=== PATIENT | female | born 1985 ===

== ENCOUNTER 2020-09-24 08:08 | Outpatient (CLI) | payer BC ==
[2020-09-24 17:55] LABS: SARS-CoV-2 MS2 Positive; SARS-CoV-2 N Gene Negative; SARS-CoV-2 S Gene Negative; SARS-CoV-2 by NAA Not Detected (NotDetected); SARS-CoV-2 orf1ab Negative
== END 2020-09-24 08:09 | disposition home or self-care (01) ==
LOC: LABBT 08:08
PROVIDERS: ATTEND Obstetrics & Gynecology
DX: Z01.812 Encounter for preprocedural laboratory examination (principal); Z20.828 Contact with and (suspected) exposure to other viral communicable diseases
CPT/HCPCS: 87635; U0003

== ENCOUNTER 2020-09-27 19:45 | Inpatient (IN) | payer BC ==
[2020-09-28] MEDS ORDERED: Promethazine HCl 25 MG/ML VIAL IM PRN ×4 (01:18→21:48)
[2020-09-28] MEDS ORDERED: Butorphanol Tartrate 1 MG/ML VIAL SLOW IVP PRN (01:18)
[2020-09-28] MEDS ORDERED: HYDROcodone/Acetaminophen 5/325 mg Tablet PO PRN ×2 (01:18)
[2020-09-28] MEDS ORDERED: NS w/ Oxytocin 10 units 500 ML IV SCH (01:18)
[2020-09-28] MEDS ORDERED: NS / Oxytocin 40 units/1000ml 1,000 ML IV PRN (01:18)
[2020-09-28] MEDS ORDERED: Ondansetron PF 4 MG/2 ML Vial IVP PRN ×4 (01:18→21:48)
[2020-09-28] MEDS ORDERED: Lidocaine 1% (PF) 30 ML VIAL SC PRN (01:18)
[2020-09-28] MEDS ORDERED: Ibuprofen 800 MG TAB PO PRN (01:18)
[2020-09-28] MEDS ORDERED: hydrALAZINE 20 MG/ML VIAL SLOW IVP PRN (01:18)
[2020-09-28 01:56] VITALS: BMI 29.5
[2020-09-28 02:00] LABS: Hemoglobin 14.3 g/dL (12.0-16.0); Mean Corpuscular HGB CONC 34.3 g/dL (32.0-36.0); Mean Corpuscular Hemoglobin 32.9 pg (27.0-31.0); Mean Platelet Volume 8.3 fL (7.4-10.4); Platelet Count 175 thou/uL (130-400); RBC Distribution Width 11.7 % (11.5-14.5); Red Blood Cell (RBC) Count 4.34 mill/uL (4.20-5.40); White Blood Cell (WBC) Count 12.8 thou/uL (4.8-10.8)
[2020-09-28] MEDS ORDERED: Misoprostol 100 MCG TAB VAG SCH ×2 (02:00→05:00)
[2020-09-28 02:41] LABS: HBSAg Index 0.18 S/CO (0-0.99); Hep B Surf Ag Non-Reactive S/CO (NonReactive)
[2020-09-28 05:00] LABS: Syphilis Antibody Nonreactive (Nonreactive); Syphilis Antibody Index 0.02 S/CO (<1.00 Non-Reactive)
--- NOTE | 2020-09-28 08:14 | PDOC.LDHP ---
Labor and Delivery H&P Chief complaint: scheduled induction HPI: G1 @ 41+ here for IOL for prolonged . Due date: 09/21/20 Dating criteria: last menstrual period, first trimester ultrasound Grav: 1 Para: 0 Current complications: none Abnormal US findings: No Current medications: pre- vitamins Previous surgical history: other (dental) Allergies/Adverse Reactions: Allergies Allergy/AdvReac Type Severity Reaction Status Date / Time No Known Allergies Allergy Unverified 09/28/20 01:48 Social history: none - Physical Exam Vital signs reviewed and normal: yes General: breathing through contractions Heart: RRR Lungs: CTAB Abdomen: gravid Extremeties: no edema FHT: category 1 - Vaginal Exam cm dilated: 3 (arom with no fluid noted immediately) Effacement: 75% Station: -1 - OB Labs Blood type: A RH: positive Antibody Screen: negative HIV: negative RPR: negative HEPSAg: negative 1 hour GCT: negative GBS: negative Urine drug screen: negative Rubella: immune - Assessment L&D Assessment: medically indicated induction (41 weeks) - Plan Plan: admit to L&D, cervical ripening -: A/P: IOL @ 41 weeks, sp cervical ripening overnight, AROM w no fluid noted immediately. Will start pitocin if indicated.
[2020-09-28] MEDS ORDERED: Fentanyl 4 mcg/Bup 0.1% Cadd 100 ML in Premix Bag 1 BAG EPIDURAL SCH (12:00)
[2020-09-28] MEDS ORDERED: Lactated Ringer's 500 ML IV PRN ×2 (12:00→13:41)
[2020-09-28] MEDS ORDERED: diphenhydrAMINE 50 MG/ML VIAL IVP PRN ×3 (12:00→21:48)
[2020-09-28] MEDS ORDERED: Acetaminophen 325 MG TAB PO PRN ×2 (12:00→13:41)
[2020-09-28] MEDS ORDERED: ePHEDrine/0.9% NaCl/PF SYRINGE 50 mg/10 ml IV PRN (12:00)
[2020-09-28] MEDS ORDERED: Naloxone HCl 0.4 mg/ml Vial IV PRN ×3 (12:00→21:48)
[2020-09-28] MEDS ORDERED: Fentanyl 100 MCG/2 ML VIAL SLOW IVP PRN (12:00)
[2020-09-28] MEDS ORDERED: Hydrocerin (Eucerin) Cream 120 gm Jar TOP PRN (12:00)
--- NOTE | 2020-09-28 12:55 | PDOC.LDPN ---
Labor & Delivery Progress Note - Subjective Subjective: painful contractions - Objective Vital signs reviewed and normal: yes General: breathing through contractions Dilation: 3-4 Effacement: 75% Station: -1 FHT: category 1 - Assessment (1) 41 weeks gestation of Code(s): Z3A.41 - 41 WEEKS GESTATION OF Current Visit: Yes Status: Acute Plan: pitocin for augmentation
[2020-09-28] MEDS ORDERED: Naloxone HCl 0.4 mg/ml Vial IVP PRN ×4 (13:41→21:48)
[2020-09-28] MEDS ORDERED: ePHEDrine 50 MG/ML VIAL SLOW IVP PRN (13:41)
[2020-09-28] MEDS ORDERED: Fentanyl 4 mcg/Bupivacaine 0.1% Cassette 100 ML EPIDURAL SCH (13:45)
[2020-09-28] MEDS ORDERED: Communication Order-Pharmacy FS SCH ×2 (13:45→22:00)
[2020-09-28] MEDS: Lactated Ringer's 1,000 ML IV SCH (15:29)
--- NOTE | 2020-09-28 16:10 | PDOC.LDPN ---
Labor & Delivery Progress Note - Subjective Subjective: comfortable - Objective Vital signs reviewed and normal: yes General: resting Dilation: 4 Effacement: 75% Station: -2 FHT: category 1 - Assessment (1) 41 weeks gestation of Code(s): Z3A.41 - 41 WEEKS GESTATION OF Current Visit: Yes Status: Acute Plan: continue plan of care -: We discussed concern for lack of cervical change since 1000, persistent posterior position of the cervix and edmatous cervix despite position changes, pitocin and AROM earlier this AM. We discussed FHT are reassuring at this time and we will continue to work toward labor progress. Nurse followed by [facility] at this check and will check at 1830 to compare exams. If no cervical change at that time, I have recommended CS for failed IOL. If cervical change noted will continue with plan of care.
[2020-09-28] MEDS ORDERED: Calcium Carbonate 500 MG ChewTAB PO SCH (17:15)
[2020-09-28] MEDS ORDERED: Morphine PF 10 MG/10 ML VIAL ONE (20:31)
[2020-09-28] MEDS ORDERED: ePHEDrine 50 MG/ML VIAL ONE (20:32)
[2020-09-28] MEDS ORDERED: Oxytocin 10 UNITS/ML VIAL ONE (20:32)
[2020-09-28] MEDS ORDERED: Ondansetron PF 4 MG/2 ML Vial ONE (20:32)
[2020-09-28] MEDS ORDERED: PHENYLEPHRINE-NS 100 MCG/ML 10 ML SYRINGE ONE (20:32)
--- NOTE | 2020-09-28 20:37 | PDOC.EVN ---
Event Note - Event Note Event Note: Patient w SVE unchanged. Discussed indication for 1CS for failed IOL, risk of continued IOL (infection, PPH, injury) vs risk of CS. Patient questions answered over HIPPA compliant video facechat prior to arriving in L and D.
[2020-09-28] MEDS ORDERED: Azithromycin 500 MG VIAL ONE (20:40)
[2020-09-28] MEDS ORDERED: CEFAZOLIN 2 GM in Premix Bag 1 BAG IVPB SCH (20:45)
[2020-09-28] MEDS ORDERED: Azithromycin 500 MG in Sodium Chloride 0.9% 250 ML 250 ML IVPB SCH (20:45)
[2020-09-28] MEDS ORDERED: Lidocaine 2% 10 ML INJ ONE (20:46)
[2020-09-28] MEDS ORDERED: Tranexamic Acid 1,000 MG/10 ML VIAL ONE (21:07)
[2020-09-28] MEDS ORDERED: Ketorolac Tromethamine 30 MG/ML VIAL ONE (21:41)
[2020-09-28] MEDS ORDERED: Ondansetron HCl/PF 4 MG/2 ML Vial IVP PRN (21:48)
[2020-09-28] MEDS ORDERED: Meperidine HCl/PF 25 MG/ML VIAL SLOW IVP PRN (21:48)
[2020-09-28] MEDS ORDERED: HYDROmorphone 2 MG/ML VIAL SLOW IVP PRN (21:48)
[2020-09-28] MEDS ORDERED: Promethazine HCl 25 MG SUPP PR PRN (21:48)
[2020-09-28] MEDS ORDERED: Ketorolac Tromethamine 30 MG/ML VIAL IVP PRN (21:48)
[2020-09-28] MEDS ORDERED: L&D-Morphine 4 MG/ML VIAL SLOW IVP PRN (21:48)
[2020-09-28] MEDS ORDERED: Ketorolac Tromethamine 30 MG/ML VIAL IVP SCH (22:00)
[2020-09-29] MEDS ORDERED: diphenhydrAMINE 25 MG CAP PO PRN (00:36)
[2020-09-29] MEDS ORDERED: Ondansetron PF 4 MG/2 ML Vial IVP PRN (00:36)
[2020-09-29] MEDS ORDERED: HYDROcodone/Acetaminophen 5/325 mg Tablet PO PRN ×2 (00:36)
[2020-09-29] MEDS ORDERED: hydrALAZINE 20 MG/ML VIAL SLOW IVP PRN (00:36)
[2020-09-29] MEDS ORDERED: NS / Oxytocin 40 units/1000ml 1,000 ML IV SCH (00:36)
[2020-09-29] MEDS ORDERED: Bisacodyl 10 MG SUPP PR PRN (00:36)
[2020-09-29] MEDS ORDERED: Lanolin Ointment 7 GM TUBE TOP PRN (00:36)
[2020-09-29] MEDS ORDERED: Acetaminophen 325 MG TAB PO PRN (00:36)
[2020-09-29] MEDS ORDERED: Docusate Calcium (SURFAK) 240 MG CAP PO SCH (00:45)
[2020-09-29] MEDS ORDERED: Ferrous Sulfate 325 MG TAB PO SCH (00:45)
[2020-09-29] MEDS ORDERED: NS / Oxytocin 40 units/1000ml 1,000 ML ONE (00:48)
[2020-09-29] MEDS ORDERED: Morphine 2 MG/ML VIAL SLOW IVP PRN ×2 (02:20→02:24)
--- NOTE | 2020-09-29 02:21 | OP ---
DATE OF PROCEDURE: 09/28/2020 PREOPERATIVE DIAGNOSES: 1. G1 at 41 weeks. 2. Failed induction of labor at 4 cm. POSTOPERATIVE DIAGNOSES: 1. G1 at 41 weeks. 2. Failed induction of labor at 4 cm. ASSISTS: Ricky Pascal MD and Shannon Chou MS-3. COMPLICATIONS: None. ANESTHESIA: Epidural per Dr. Salcedo. EBL: 800 mL. QUANTITATIVE BLOOD LOSS: Pending at the time of dictation. COUNTS: Correct x2. PREOP ANTIBIOTICS: Azithromycin and Ancef. OPERATIVE FINDINGS: 1. Low-transverse hysterotomy without extension. 2. Vigorous female infant, Apgars and weight pending at the time of dictation to nursery. 3. Normal-appearing placenta and umbilical cord. 4. Fundus firm after delivery of placenta. 5. Surgical sites hemostatic. 6. Normal-appearing uterus, tubes, and ovaries bilaterally. DESCRIPTION OF PROCEDURE: The patient was taken back to the OR with IV fluids running. Hylton catheter and epidural catheters that were previously placed. When she was in the OR, she was placed in dorsal supine position with a left lateral tilt. The abdomen was prepped and draped in normal fashion for section. Surgeons were gowned and gloved. Anesthesia was tested and found to be adequate. A Pfannenstiel skin incision was made with a scalpel. The skin incision was carried down through the subcutaneous tissue to the fascia. Once the fascia was reached, it was incised in the midline and extended superolaterally using curved Rubio scissors. Vishnu clamps were placed at the superior border of the fascia, which was sharply and bluntly dissected off the rectus abdominis muscles. In similar fashion, Vishnu clamps were placed at the inferior border of the fascia, which was dissected down towards the level of the pubic symphysis. The rectus muscles and peritoneum were bluntly entered and stretched in the midline. An Jesus O retractor was placed into the peritoneal cavity for retraction visualization and protection of the wound. A bladder flap was created using Metzenbaum scissors and the bladder was dissected away from the planned hysterotomy site. A low-transverse hysterotomy was made with a scalpel. The hysterotomy was bluntly entered and stretched using Jones maneuver. Clear fluid was noted. The was noted to be in occiput posterior position and was delivered through the hysterotomy without difficulty. After the head was delivered, the shoulders and body delivered without difficulty. The nose and mouth were suctioned. The cord was doubly clamped and cut, and the was handed off to special care nurse in attendance. Cord blood was collected. The placenta was delivered. The uterus was massaged to firm and cleared of clot and debris. The hysterotomy was inspected with no extension noted. Some brisk bleeding was noted at the placental site despite blanching of the uterus and contraction of the myometrium. Order of tranexamic acid IV was ordered at this time. Once the uterine bleeding was noted to be minimal from the endometrium. The hysterotomy was closed in a running locked fashion using Monocryl suture. A second layer was placed in a running fashion to reapproximate the serosal edges. After the hysterotomy was closed, the hysterotomy and paracolic gutters were suctioned and irrigated dry. The hysterotomy was inspected again with no bleeding noted. The Jesus O retractor was removed from the abdominal cavity. The rectus muscles and fascia were inspected and no areas of bleeding noted. The rectus fascia was reapproximated from corner to corner using PDS suture. After the rectus fascia was closed, the subcutaneous layer was irrigated and dried. Any small areas of bleeding were controlled with Bovie cauterization. The subcutaneous layer was reapproximated using a series of interrupted plain gut sutures. The skin was closed with 4-0 Monocryl and dressed with Dermabond dressing. The uterine fundus palpated firm at the end of the case, and normal lochia was noted. The counts were correct and there were no complications. Job ID: [id number]
[2020-09-29] MEDS ORDERED: Morphine 4 MG/ML VIAL ONE (02:26)
[2020-09-29] MEDS ORDERED: Misoprostol 200 MCG TAB ONE (04:33)
[2020-09-29] MEDS: Lactated Ringer's 1,000 ML IV SCH ×2 (07:39→07:40)
[2020-09-29 07:55] LABS: Hemoglobin 11.3 g/dL (12.0-16.0); Mean Corpuscular HGB CONC 34.4 g/dL (32.0-36.0); Mean Corpuscular Hemoglobin 34.3 pg (27.0-31.0); Mean Corpuscular Volume 99.8 fL (78.0-98.0); Platelet Count 167 thou/uL (130-400); RBC Distribution Width 11.7 % (11.5-14.5); Red Blood Cell (RBC) Count 3.31 mill/uL (4.20-5.40); White Blood Cell (WBC) Count 19.9 thou/uL (4.8-10.8)
--- NOTE | 2020-09-29 08:00 | PDOC.PP ---
Post Progress Note Post Day #: 1 Subjective: doing well, working w LC on nursing, pain controlled, no NV PO intake tolerated: yes Flatus: yes Ambulation: yes Weight Weight 200 lb VS WNL in centricity - Physical Examination General: NAD Respiratory: non-labored breathing Abdominal: no distention Fundus firm & at: below umb Skin: CS incision dry & intact Neurological: no gross focal deficits Psychiatric: A&Ox3, normal affect Result Diagrams: 09/29/20 07:36 Additional Labs: Post Labs Hep Bs Antigen Non-Reactive S/CO (NonReactive) 09/28/20 01:36 Blood Type A POSITIVE 09/28/20 02:23 (1) 41 weeks gestation of Code(s): Z3A.41 - 41 WEEKS GESTATION OF Status: Acute (2) delivery delivered Code(s): O82 - ENCOUNTER FOR DELIVERY WITHOUT INDICATION Status: Acute - Assessment/Plan POD1 doing well, working w for breast feeding. Plan to advance orders to regular diet and ambulate this AM.
[2020-09-29] MEDS ORDERED: Adacel (T-DAP) 0.5 ML SYRINGE IM ONE (09:00)
[2020-09-29] MEDS: Ferrous Sulfate 325 MG TAB PO SCH ×2 (09:09→17:11)
[2020-09-29] MEDS: Prenatal Vitamin 1 TAB PO SCH (09:09)
[2020-09-29] MEDS: Docusate Calcium (SURFAK) 240 MG CAP PO SCH ×2 (09:11→21:13)
[2020-09-29] MEDS: Simethicone Chewable 80 MG TAB PO PRN ×2 (09:11→17:00)
[2020-09-29] MEDS: Ibuprofen 800 MG TAB PO SCH ×2 (15:00→21:13)
[2020-09-30] MEDS: Ibuprofen 800 MG TAB PO SCH ×3 (06:33→20:30)
--- NOTE | 2020-09-30 07:03 | PDOC.PP ---
Post Progress Note Post Day #: 2 Subjective: Doing well this morning, no complaints. PO intake tolerated: yes Flatus: yes Ambulation: yes Vital Signs (12 hours) Temp Pulse Resp BP 09/30/20 05:05 97.9 F 54 L 12 119/67 09/30/20 01:11 98.7 F 72 124/76 09/29/20 20:59 98.1 F 78 12 109/74 Weight Weight 200 lb - Physical Examination General: NAD Respiratory: non-labored breathing Abdominal: lochia (normal), no distention, appropriately TTP Fundus firm & at: below umbilicus Extremities: negative homans (B) Skin: CS incision dry & intact, no rash Neurological: no gross focal deficits Psychiatric: A&Ox3, normal affect Result Diagrams: 09/29/20 07:36 Additional Labs: Post Labs Hep Bs Antigen Non-Reactive S/CO (NonReactive) 09/28/20 01:36 Blood Type A POSITIVE 09/28/20 02:23 - Assessment/Plan POD2, doing well. Possible d/c home today vs tomorrow. Will let nurse know if she would like to go home today.
[2020-09-30] MEDS: Ferrous Sulfate 325 MG TAB PO SCH ×2 (08:50→16:58)
[2020-09-30] MEDS: Prenatal Vitamin 1 TAB PO SCH (08:53)
[2020-09-30] MEDS: Docusate Calcium (SURFAK) 240 MG CAP PO SCH ×2 (08:53→20:31)
[2020-09-30 16:57] VITALS: TEMP 97.8
--- NOTE | 2020-10-01 06:19 | PDOC.PP ---
Post Progress Note Post Day #: 3 Subjective: Doing well, requesting DC PO intake tolerated: yes Flatus: yes Ambulation: yes Vital Signs (12 hours) Pulse Ox 09/30/20 20:00 98 Weight Weight 200 lb Afebrile and normotensive; vitals reviewed for last 24 hrs. - Physical Examination General: NAD Respiratory: non-labored breathing Abdominal: no distention, appropriately TTP Extremities: negative homans (B) Skin: CS incision dry & intact (sutured, DB), no rash Neurological: no gross focal deficits Psychiatric: A&Ox3, normal affect Result Diagrams: 09/29/20 07:36 Additional Labs: Post Labs Hep Bs Antigen Non-Reactive S/CO (NonReactive) 09/28/20 01:36 Blood Type A POSITIVE 09/28/20 02:23 (1) delivery delivered Code(s): O82 - ENCOUNTER FOR DELIVERY WITHOUT INDICATION Status: Acute - Assessment/Plan POD3, ok for DC to home. Sarah as outpatient med Follow up within 2 weeks
[2020-10-01 06:44] VITALS: BP 119/72
[2020-10-01] MEDS: Ibuprofen 800 MG TAB PO SCH ×2 (06:45→09:17)
[2020-10-01] MEDS: Prenatal Vitamin 1 TAB PO SCH (09:15)
[2020-10-01] MEDS: Docusate Calcium (SURFAK) 240 MG CAP PO SCH (09:15)
[2020-10-01] MEDS: Ferrous Sulfate 325 MG TAB PO SCH (09:18)
== END 2020-10-01 15:00 | disposition home or self-care (01) | DRG 788 ==
LOC: L&D 09-28 01:02 → 3SW 09-29 09:31
PROVIDERS: ADMIT Obstetrics & Gynecology; ATTEND Obstetrics & Gynecology
PROC: 10D00Z1 Extraction of Products of Conception, Low, Open Approach (ICD-10-PCS; principal; 2020-09-28)
PROC: 10907ZC Drainage of Amniotic Fluid, Therapeutic from Products of Conception, Via Natural or Artificial Opening (ICD-10-PCS; 2020-09-28)
PROC: 3E0P7VZ Introduction of Hormone into Female Reproductive, Via Natural or Artificial Opening (ICD-10-PCS; 2020-09-28)
DX: O48.1 Prolonged pregnancy (principal); Z3A.41 41 weeks gestation of pregnancy; Z37.0 Single live birth; O61.0 Failed medical induction of labor; Z20.828 Contact with and (suspected) exposure to other viral communicable diseases; O64.0XX0 Obstructed labor due to incomplete rotation of fetal head, not applicable or unspecified
CPT/HCPCS: 36415; 51702; 85027; 86780; 86850; 86900; 86901; 87340; J0456; J0690; J1885; J2270; J2405; J2590; J3490